=== PATIENT | male | born 1990 | race Hispanic/Latino ===

== ENCOUNTER 2021-03-26 14:58 | Inpatient (IN) | payer SELFPAY ==
[~2021-03-26] VITALS: Ht 172.7 cm; Wt 123.6 kg
[2021-03-26] MEDS ORDERED: ZOSYN 3.375GM +NS 50ML IV SCH (15:30)
[2021-03-26 15:35] LABS: BASOPHILS % (AUTO) 0.3 % (0.0-5.0); EOSINOPHILS % (AUTO) 1.1 % (0.0-8.0); HEMATOCRIT 44.2 % (42-54); LYMPHOCYTES % (AUTO) 20.2 % (21.0-51.0); MEAN CORPUSCULAR HEMOGLOBIN 28.7 pg (27.0-33.0); MEAN CORPUSCULAR HGB CONC 33.7 g/dL (32.0-36.0); MEAN CORPUSCULAR VOLUME 85.2 fL (79-99); MONOCYTES % (AUTO) 8.4 % (3.0-13.0); NEUTROPHILS % (AUTO) 69.5 % (40.0-77.0); PLATELET COUNT (AUTO) 280 K/uL (130-400); RED BLOOD CELL COUNT(AUTO) 5.19 MIL/uL (4.50-6.20); RED CELL DISTRIBUTION WIDTH 12.7 % (11.0-15.5); WHITE BLOOD COUNT (AUTO) 11.1 K/uL (4.8-10.8)
[2021-03-26 15:50] LABS: CREATININE 0.9 mg/dL (0.5-1.5); POTASSIUM 3.5 mmol/L (3.5-5.1)
[2021-03-26 15:54] LABS: ALBUMIN 3.9 g/dL (3.5-5.0); BILIRUBIN,TOTAL 0.5 mg/dL (0.2-1.0); CRP QUANTITATIVE 42.6 mg/L (0.00-9.0); TOTAL PROTEIN, SERUM 8.3 g/dL (6.0-8.3)
[2021-03-26] MEDS ORDERED: MORPHINE 2 MG SYG IVP ONE (16:30)
[2021-03-26] MEDS ORDERED: ONDANSETRON 4MG INJ IVP ONE (16:30)
[2021-03-26] MEDS ORDERED: ACETAMINOPHEN 325 MG TAB PO PRN ×2 (17:00)
[2021-03-26] MEDS ORDERED: VANCOMYCIN PROTOCOL PER PHARMACY IV PRN (17:00)
[2021-03-26] MEDS ORDERED: ONDANSETRON 4MG INJ IV PRN (17:00)
[2021-03-26] MEDS: LACTATED RINGERS 1000ML 1,000 ML IV SCH (18:10)
[2021-03-26] MEDS ORDERED: VANCOMYCIN 2GM/500ML NS IV ONE ×2 (18:30)
[2021-03-27] VITALS (19 sets, daily range): BP systolic 34–134; BP diastolic 51–88
[2021-03-27 01:12] LABS: AMPHET/METH SCREEN,URINE NEGATIVE (NEGATIVE); BARBITURATE SCREEN, URINE NEGATIVE (NEGATIVE); BENZODIAZEPINES SCREEN,URINE NEGATIVE (NEGATIVE); CANNABINOID SCREEN,URINE NEGATIVE (NEGATIVE); COCAINE SCREEN,URINE NEGATIVE (NEGATIVE); OPIATE SCREEN,URINE NEGATIVE (NEGATIVE); PHENCYCLIDINE SCREEN,URINE NEGATIVE (NEGATIVE)
[2021-03-27] MEDS: ZOSYN 3.375GM+NS 50ML 50 ML IV SCH ×3 (03:15→17:29)
[2021-03-27] MEDS: 0.9% NACL 250ML 250 ML IV SCH ×3 (05:48→17:31)
[2021-03-27] MEDS: VANCOMYCIN KIT 1 GM/250 ML IV.KIT IV SCH ×3 (05:48→17:30)
[2021-03-27] MEDS: LACTATED RINGERS 1000ML 1,000 ML IV SCH ×4 (05:48→22:07)
[2021-03-27 12:39] LABS: HEMATOCRIT 39.5 % (42-54); MEAN CORPUSCULAR HEMOGLOBIN 29.2 pg (27.0-33.0); MEAN CORPUSCULAR HGB CONC 33.7 g/dL (32.0-36.0); MEAN CORPUSCULAR VOLUME 86.6 fL (79-99); RED BLOOD CELL COUNT(AUTO) 4.56 MIL/uL (4.50-6.20); WHITE BLOOD COUNT (AUTO) 8.3 K/uL (4.8-10.8)
[2021-03-27] MEDS ORDERED: FENTANYL CITRATE PF 50 MCG/1 ML 2ML VIAL ONE ×2 (17:42→19:50)
[2021-03-27] MEDS ORDERED: MIDAZOLAM HCL 1 MG/ML 2ML VIAL ONE (17:42)
[2021-03-27] MEDS ORDERED: PROPOFOL 10 MG/ML 20ML VIAL IV ONE ×2 (17:42→19:52)
[2021-03-27] MEDS ORDERED: ROCURONIUM 10MG/1ML SYR 10 MG/ML ML ONE (17:42)
[2021-03-27] MEDS ORDERED: FENTANYL CITRATE PF 50 MCG/1 ML 5ML AMP IV ONE (19:22)
[2021-03-27] MEDS ORDERED: MEPERIDINE-PF 25 MG/ML SYG ONE ×2 (19:40→20:53)
[2021-03-27] MEDS ORDERED: ONDANSETRON 4MG INJ ONE (20:18)
[2021-03-27] MEDS ORDERED: KETOROLAC 30MG VIAL (30MG/ML) ONE (20:20)
[2021-03-27] MEDS ORDERED: MORPHINE 2 MG SYG IVP PRN (21:30)
[2021-03-28] VITALS (8 sets, daily range): BP systolic 111–131; BP diastolic 56–80
[2021-03-28] MEDS: ZOSYN 3.375GM+NS 50ML 50 ML IV SCH ×3 (00:47→17:19)
[2021-03-28] MEDS: 0.9% NACL 250ML 250 ML IV SCH ×2 (01:56→08:07)
[2021-03-28] MEDS: VANCOMYCIN KIT 1 GM/250 ML IV.KIT IV SCH ×2 (01:56→08:06)
[2021-03-28 04:59] LABS: HEMATOCRIT 38.4 % (42-54); MEAN CORPUSCULAR HEMOGLOBIN 28.8 pg (27.0-33.0); MEAN CORPUSCULAR HGB CONC 32.6 g/dL (32.0-36.0); MEAN CORPUSCULAR VOLUME 88.5 fL (79-99); RED BLOOD CELL COUNT(AUTO) 4.34 MIL/uL (4.50-6.20); RED CELL DISTRIBUTION WIDTH 12.8 % (11.0-15.5); WHITE BLOOD COUNT (AUTO) 10.1 K/uL (4.8-10.8)
[2021-03-28 05:10] LABS: POTASSIUM 3.9 mmol/L (3.5-5.1)
[2021-03-28] MEDS: LACTATED RINGERS 1000ML 1,000 ML IV SCH ×2 (08:07→20:48)
[2021-03-28] MEDS ORDERED: COMPOUND IV REFRIGERATED 1 EACH IVSOLN MISC PRN (18:00)
[2021-03-28] MEDS: VANCOMYCIN 1.75GM/250ML NS IV SCH ×2 (20:48)
[2021-03-29] VITALS: BP 131/75
[2021-03-29] MEDS: ZOSYN 3.375GM+NS 50ML 50 ML IV SCH ×3 (00:38→17:00)
[2021-03-29 04:00] VITALS: BP 116/64
[2021-03-29 05:54] LABS: HEMATOCRIT 37.9 % (42-54); MEAN CORPUSCULAR HEMOGLOBIN 29.1 pg (27.0-33.0); MEAN CORPUSCULAR HGB CONC 33.8 g/dL (32.0-36.0); MEAN CORPUSCULAR VOLUME 86.1 fL (79-99); RED BLOOD CELL COUNT(AUTO) 4.4 MIL/uL (4.50-6.20); RED CELL DISTRIBUTION WIDTH 12.7 % (11.0-15.5); WHITE BLOOD COUNT (AUTO) 9.9 K/uL (4.8-10.8)
[2021-03-29] MEDS: LACTATED RINGERS 1000ML 1,000 ML IV SCH ×2 (06:03→15:00)
[2021-03-29 07:29] VITALS: BP 131/75
[2021-03-29] MEDS: VANCOMYCIN 1.75GM/250ML NS IV SCH ×2 (08:23)
[2021-03-29] MEDS ORDERED: SODIUM HYPOCHLORITE 0.5% [FULL STRENGTH] 473 ML TOPICAL SOLN TP SCH (09:00)
[2021-03-29 10:46] VITALS: BP 132/68
[2021-03-29 15:28] VITALS: BP 132/88
== END 2021-03-29 19:57 | disposition home or self-care (01) | DRG 580 ==
LOC: EDH 14:58 → EDHIP 14:59 → OBSVTOIN 14:59 → 3CH 03-27 09:32
PROVIDERS: ADMIT Internal Medicine; ATTEND Internal Medicine
PROC: 0H98XZZ Drainage of Buttock Skin, External Approach (ICD-10-PCS; 2021-03-27)
PROC: 0Y953ZZ Drainage of Right Inguinal Region, Percutaneous Approach (ICD-10-PCS; 2021-03-27)
PROC: 0H99XZZ Drainage of Perineum Skin, External Approach (ICD-10-PCS; principal; 2021-03-27 17:30)
DX: L02.214 Cutaneous abscess of groin (principal); Z68.41 Body mass index [BMI] 40.0-44.9, adult; L02.31 Cutaneous abscess of buttock; L03.90 Cellulitis, unspecified; L02.415 Cutaneous abscess of right lower limb; L02.416 Cutaneous abscess of left lower limb; E66.01 Morbid (severe) obesity due to excess calories; F17.210 Nicotine dependence, cigarettes, uncomplicated; L02.215 Cutaneous abscess of perineum; Z20.822 Contact with and (suspected) exposure to COVID-19; L73.2 Hidradenitis suppurativa; E11.9 Type 2 diabetes mellitus without complications
CPT/HCPCS: 36415; 74176; 80048; 80053; 80202; 80305; 82550; 82948; 83036; 83605; 85025; 85027; 86140; 86592; 87040; 87070; 87076; 87077; 87186; 87205; 87486; 87635; 87797; A6266; G0378; J1885; J2175; J2250; J2405; J2543; J2704; J3010; J3370; J7040; J7050; J7120

== ENCOUNTER 2022-12-17 14:06 | Emergency (ER) | payer OTHER ==
[~2022-12-17] VITALS: Ht 170.2 cm; Wt 127.0 kg
[2022-12-17 17:00] LABS: RAPID GROUP A STREP negative (NEGATIVE)
[2022-12-17 17:10] LABS: INFLUENZA TYPE A Negative For Type A (NEGATIVE); INFLUENZA TYPE B Negative For Type B (NEGATIVE)
[2022-12-17 17:28] LABS: SARS-CoV-2, RNA, NAAT POSITIVE SARS CoV-2 (NEGATIVE)
[2022-12-17 17:42] VITALS: BP 141/86; O2SAT 99
[2022-12-17 17:57] VITALS: PULSE 104; PULSE 98; RESP 20; O2SAT 100; O2SAT 97
== END 2022-12-17 17:48 | disposition home or self-care (01) ==
LOC: EDH 14:06
DX: U07.1 COVID-19 (principal); B34.9 Viral infection, unspecified; Z90.49 Acquired absence of other specified parts of digestive tract
CPT/HCPCS: 99283; 87635; 87880; 87804 ×2; 94760 ×2; C9803